=== PATIENT | female | born 1990 | race Caucasian/White ===

== ENCOUNTER 2021-07-27 20:45 | Emergency (ER) | payer OTHER, SELFPAY ==
[2021-07-27 20:51] VITALS: BP 119/79; PULSE 102; RESP 20; TEMP 37.5; O2SAT 99
--- NOTE | 2021-07-28 01:21 | PC.NURSE ---
Pt to INTAKE desk at this time, handed this RN name bracelet while shaking her head and saying Im leaving. Pt ambulated out w/ steady gait.
== END 2021-07-28 01:41 | disposition left against medical advice (07) ==
PROVIDERS: PCP Physician Assistant
DX: Z53.21 Procedure and treatment not carried out due to patient leaving prior to being seen by health care provider (principal)
CPT/HCPCS: 99199

== ENCOUNTER 2023-04-11 08:00 | Outpatient (NON) | payer OTHER, SELFPAY | END 2023-04-11 08:01 | disposition home or self-care (01) | PROVIDERS: PCP Physician Assistant; Visit Provider Nurse Practitioner | DX: D23.71 Other benign neoplasm of skin of right lower limb, including hip (principal); D23.62 Other benign neoplasm of skin of left upper limb, including shoulder | CPT/HCPCS: 88305; 88342 ==

== ENCOUNTER 2024-11-10 12:48 | Outpatient (CLI) | payer BC, SELFPAY ==
--- NOTE | ~2024-11-10 | US_ITS ---
EXAM: Focused ultrasound examination of the soft tissues of the right posterior hip HISTORY: NODULE OF SUBCUTANEOUS TISSUE OF BACK TECHNIQUE: Sonographic evaluation of the soft tissues of the right posterior lateral hip was performe d assessing grayscale appearance and color Doppler flow. COMPARISON: None. FINDINGS: Sonographic evaluation of the soft tissues of the right posterior lateral hip demonstrate multiple julio bcentimeter shadowing foci, some with vascularity, for which contrast enhanced MRI is recommended. Initial focus on the submitted images is likely a calcified granuloma measuring 7.3 x 5.5 x 5.7 mm, f or which no further follow-up is needed. A more superficial, irregular focus of decreased echogenicity is identified measuring 8.7 x 9.4 x 6.1 mm, which demonstrates vascularity and angular margins. Two deep or more well-circumscribed shadowing areas measure 8.1 x 6.4 x 7.4 mm and 6.2 x 7.1 x 6.2 mm . Sonographic evaluation of the remainder of the areas of clinical concern demonstrate benign fibrofatt y and fibromuscular elements without a cystic or solid lesion of concern. IMPRESSION: Superficial irregular focus of decreased echogenicity with internal vascularity and angular margins f or which contrast enhanced MRI is suggested for further evaluation. Reviewed, dictated and finalized at location A. IMPRESSION: Superficial irregular focus of decreased echogenicity with internal vascularity and angular margins for which contrast enhanced MRI is suggested for further e valuation.
== END 2024-11-10 12:49 | disposition home or self-care (01) ==
LOC: GOSHIMG 12:49
PROVIDERS: PCP Physician Assistant; Visit Provider Physician Assistant
DX: R22.2 Localized swelling, mass and lump, trunk (principal)
CPT/HCPCS: 76705

== ENCOUNTER 2024-12-09 14:11 | Outpatient (CLI) | payer BC, SELFPAY ==
--- NOTE | ~2024-12-09 | MR_ITS ---
EXAMINATION: MR lumbar spine wo/w con DATE: 12/09/2024 15:06 INDICATION: Subcutaneous nodules at the back TECHNIQUE: Magnetic resonance imaging (MRI) of the lumbar spine was performed without and with 12 mL Multihance intravenous contrast. Sequences included standard small [id number] the lumbar spine wit h sagittal T2-weighted FSE, sagittal T2-weighted FS FSE, and sagittal and axial T1-weighted FSE. Post contrast sequences included axial T2-weighted FSE, sagittal T1-weighted FSE, and axial and sagittal T 1-weighted FS FSE. The sagittal images extend to include the right buttock overlying the region of co ncern. Additional larger [id number] of the pelvis sequences included axial and coronal T1-weighted FSE and T2-weighted FS FSE, axial T1-weighted FS FSE and postcontrast axial and coronal T1-weighted FS FSE. COMPARISON: None FINDINGS: Alignment is normal. Vertebral body heights are normal. Normal marrow signal. Disc heights are ethel l. The conus medullaris terminates at L2. There is normal signal in the caudal spinal cord. No abnorm ally enhancing spinal lesions. Paravertebral soft tissues are unremarkable. 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 There is more pro minent mild inflammatory stranding with non masslike enhancement surrounding a few additional lesions in the subcutaneous fat of the right buttocks likely related to more recent subcutaneous injections. The following disc levels are specifically discussed: T12-L1 through L2-L3: The disc does not extend beyond the endplate margin. There is mild bilateral fa cet joint osteoarthritis. There is no neural foraminal stenosis. There is no central canal stenosis. L3-L4: Disc is minimally bulging. There is mild left and mild to moderate right facet joint osteoarth ritis. There is no neural foraminal stenosis. There is no central canal stenosis. L4-L5: Disc is mildly bulging. There is mild bilateral facet joint osteoarthritis. There is mild bila teral neural foraminal stenosis. There is minimal central canal stenosis. L5-S1: The disc does not extend beyond the endplate margin. There is mild to moderate bilateral facet joint osteoarthritis. There is no neural foraminal stenosis. There is no central canal stenosis. IMPRESSION: 1. 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 There is focal stranding with non masslike enhancement surrounding a couple of the lesions at the right buttock likely representing lo lg inflammation related to more recent injections. 2. Minimal lumbar spondylosis. Reviewed, dictated and finalized at location A. IMPRESSION: 1. Multiple subcutaneous nodules at the bilateral buttocks, the majority with i maging features on both MRI and prior ultrasound most consistent with periphera lly calcified heterotopic ossicles/injection granulomata which would be consist ent with a history of multiple subcutaneous injections at these locations and w hich could be confirmed with pelvis radiographs or CT. There is focal stranding with non masslike enhancement surrounding a couple of the lesions at the right buttock likely representing local inflammation related to more recent injectio ns. 2. Minimal lumbar spondylosis.
== END 2024-12-09 14:12 | disposition home or self-care (01) ==
LOC: MICIMG 14:11
PROVIDERS: PCP Physician Assistant; Visit Provider Physician Assistant
DX: R22.2 Localized swelling, mass and lump, trunk (principal)
CPT/HCPCS: 72158; A9577